=== PATIENT | male | born 1965 | race Caucasian/White ===

== ENCOUNTER → 2022-06-30 14:54 | Outpatient (BNVA) | payer BC, SELFPAY | PROVIDERS: PCP Internal Medicine; Visit Provider Hospitalist | DX: Z13.89 Encounter for screening for other disorder (principal) ==

== ENCOUNTER → 2022-07-29 15:04 | Outpatient (BNVA) | payer BC, SELFPAY | PROVIDERS: PCP Internal Medicine; Visit Provider Hospitalist | DX: J45.909 Unspecified asthma, uncomplicated (principal) ==

== ENCOUNTER 2023-01-27 15:14 | Outpatient (AMB) | payer BC, SELFPAY ==
[2023-01-27 15:21] VITALS: BP 128/76; PULSE 60; O2SAT 96; BMI 25.8
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
== END 2023-01-27 15:48 | disposition home or self-care (01) ==
PROVIDERS: PCP Internal Medicine; Visit Provider Hospitalist
DX: J45.40 Moderate persistent asthma, uncomplicated (principal); R06.00 Dyspnea, unspecified; J30.2 Other seasonal allergic rhinitis; J40 Bronchitis, not specified as acute or chronic
CPT/HCPCS: 99214

== ENCOUNTER → 2023-01-27 15:14 | Outpatient (BNVA) | payer BC, SELFPAY | PROVIDERS: PCP Internal Medicine; Visit Provider Hospitalist | DX: J45.909 Unspecified asthma, uncomplicated (principal) ==

== ENCOUNTER 2023-01-27 15:52 | Outpatient (REF) | payer BC, SELFPAY | END 2023-01-27 15:53 | disposition home or self-care (01) | LOC: HO.LNP 15:52 | PROVIDERS: Visit Provider Hospitalist | DX: J40 Bronchitis, not specified as acute or chronic (principal) | CPT/HCPCS: 87070; 87205 ==

== ENCOUNTER 2023-05-06 08:45 | Outpatient (REF) | payer BC, SELFPAY ==
--- NOTE | 2023-05-06 09:11 | PFT_ITS ---
Indication: Asthma Spirometry [FEV1 to FVC pre bronchodilator 71% post bronchodilator 74%; FEV1 3.96 L 103% predicted; FVC 5.37 L 99% predicted. No significant response to bronchodilators noted. Maximum voluntary ventilation 147% predicted] Lung Volumes [Total lung capacity 125 % predicted; residual volume 132% predicted] Diffusion Capacity [Diffusing capacity 157% predicted Comparisons [None] Interpretation [No obstructive nor restrictive ventilatory defects 75. No significant response to bronchodilators noted. Although, his pre bronchodilator FEV1 to FVC was very close to an obstructive physiology. The patient does have significant air trapping and hyperinflation due to his small airways disease. In addition, the patient has a significantly elevated diffusing capacity. Need to consider exogenous exposure to carbon monoxide. Clinical correlation warranted.] MTDD
== END 2023-05-06 08:46 | disposition home or self-care (01) ==
LOC: HO.RESP 08:45
PROVIDERS: PCP Internal Medicine; Visit Provider Hospitalist
DX: J40 Bronchitis, not specified as acute or chronic (principal)
CPT/HCPCS: 94010; 94727; 94729

== ENCOUNTER → 2023-05-07 07:11 | Outpatient (BNV) | payer BC, SELFPAY | PROVIDERS: PCP Internal Medicine; Visit Provider Hospitalist | DX: J40 Bronchitis, not specified as acute or chronic (principal) | CPT/HCPCS: 94060; 94727; 94729 ==

== ENCOUNTER 2023-05-14 12:50 | Outpatient (REF) | payer BC, SELFPAY ==
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
[2023-05-14 13:39] LABS: MANUAL DIFF FLAG NO
[2023-05-14 14:15] LABS: Basophils Absolute Auto 0.1 X10*3/uL (0.0-0.2); Basophils Percent Auto 0.9 % (0-2); Eosinophils Absolute Auto 0.2 X10*3/uL (0.0-0.4); Eosinophils Percent Auto 2.2 % (0-4); Hematocrit 46.9 % (42.0-52.0); Hemoglobin 16.7 g/dl (14.0-18.0); Imm Gran Abs Auto 0.02 X10*3/uL (0.00-0.03); Imm Gran Pct Auto 0.3 % (0.0-0.4); Lymphocytes Absolute Auto 1.4 X10*3/uL (1.2-4.9); Lymphocytes Percent Auto 20.4 % (20-40); Mean Corpuscular HGB Conc 35.6 g/dl (31.0-36.0); Mean Corpuscular Hemoglobin 32.5 pg (27.0-33.0); Mean Corpuscular Volume 91.2 fL (80.0-98.0); Mean Platelet Volume 9.1 fL (9.4-12.4); Monocytes Absolute Auto 0.4 X10*3/uL (0.1-1.2); Monocytes Percent Auto 5.8 % (2-11); Neutrophils Absolute Auto 4.7 x10*3/uL (2.0-8.3); Neutrophils Percent Auto 70.4 % (45-73); Platelet Count 199 X10*3/uL (160-400); Red Blood Count 5.14 X10*6/uL (4.60-5.80); Red Cell Distribution Width 12.8 % (11.0-16.0); White Blood Count 6.7 X10*3/uL (4.8-10.8)
[2023-05-14 14:39] LABS: Anion Gap 12 (12-20); Blood Urea Nitrogen 21 mg/dL (9-16); Calcium 9.1 mg/dL (8.4-10.2); Carbon Dioxide 30 mmol/L (22-29); Chloride 104 mmol/L (96-108); Estimated Glomerular Filt Rate > 60; Glucose Random 112 mg/dL (60-115); Potassium 3.5 mmol/L (3.3-5.1); Sodium 142 mmol/L (135-145)
[2023-05-14 14:53] LABS: Erythrocyte Sedimentation Rate 2 MM/HR (0-15)
[2023-05-18 13:29] LABS: IgA 183 mg/dL (47-310); IgG 952 mg/dL (600-1640); IgM 102 mg/dL (50-300)
[2023-05-18 18:18] LABS: Immunoglobulin E 65 kU/L (<OR=114)
[2023-05-21 14:34] LABS: Asperg fumigatus Precip Abs NEGATIVE (NEGATIVE); Micropoly faeni Abs NEGATIVE (NEGATIVE); Pigeon serum Abs NEGATIVE (NEGATIVE); Saccharo pora viridis Abs NEGATIVE (NEGATIVE); Thermo candidus Abs NEGATIVE (NEGATIVE); Thermoa vulgaris #1 NEGATIVE (NEGATIVE)
== END 2023-05-14 12:51 | disposition home or self-care (01) ==
LOC: HO.XRAY 12:50
PROVIDERS: PCP Internal Medicine; Visit Provider Hospitalist
DX: R91.8 Other nonspecific abnormal finding of lung field (principal); J45.40 Moderate persistent asthma, uncomplicated; R06.09 Other forms of dyspnea; J30.2 Other seasonal allergic rhinitis; J40 Bronchitis, not specified as acute or chronic
CPT/HCPCS: 36415; 71046; 80048; 82784; 82785; 85025; 85652; 86003; 86331; 86606; 86609

== ENCOUNTER 2023-05-14 12:50 | Outpatient (AMB) | payer BC, SELFPAY ==
[2023-05-14 12:59] VITALS: PULSE 64; O2SAT 97; BMI 26.3
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
== END 2023-05-14 13:25 | disposition home or self-care (01) ==
PROVIDERS: PCP Internal Medicine; Visit Provider Hospitalist
DX: J45.40 Moderate persistent asthma, uncomplicated (principal); R06.09 Other forms of dyspnea; J30.2 Other seasonal allergic rhinitis
CPT/HCPCS: 99214

== ENCOUNTER 2023-10-08 12:48 | Outpatient (AMB) | payer BC, SELFPAY ==
[2023-10-08 13:02] VITALS: BP 124/70; PULSE 54; O2SAT 97; BMI 26.6
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
== END 2023-10-08 13:18 | disposition home or self-care (01) ==
PROVIDERS: PCP Internal Medicine; Visit Provider Hospitalist
DX: J45.40 Moderate persistent asthma, uncomplicated (principal); R06.09 Other forms of dyspnea; J30.2 Other seasonal allergic rhinitis
CPT/HCPCS: 99214

== ENCOUNTER → 2023-10-08 12:48 | Outpatient (BNVA) | payer BC, SELFPAY | PROVIDERS: PCP Internal Medicine; Visit Provider Hospitalist | DX: J45.909 Unspecified asthma, uncomplicated (principal); J30.2 Other seasonal allergic rhinitis ==

== ENCOUNTER 2024-10-14 12:39 | Outpatient (REF) | payer BC, SELFPAY ==
--- NOTE | ~2024-10-14 | XR_ITS ---
EXAMINATION: XR CHEST CLINICAL INFORMATION: J40 - Bronchitis, not specified as acute or chronic COMPARISON: May 14, 2023. TECHNIQUE: 2 views of the chest were obtained. FINDINGS: No consolidation pleural effusion or pneumothorax. S-shaped curvature of the thoracolumbar spine. Cardiomediastinal silhouette size is normal. Multilevel thoracic and upper lumbar spondylosis. Old traumatic deformities and callus formation in the posterior lateral aspect of the ribs right hemithorax. XR/XR chest 2V IMPRESSION: No acute airspace disease. Stable chest. Electronically signed by: Kevin Aleman MD 10/14/2024 01:46 PM EDT
--- OUTSIDE RECORDS SUMMARY | 2024-10-14 13:23 | XMS_ITS | Continuity of Care Document ---
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 Comments Source KPiP-Dwq-DMC 2020 UNKNOWN 120 GlaxoSmithKli ne complet ed DTaP-Hib- IPV 02/07/21 Given Ambulat ory Pharmac y influenza virus vaccine, unspecified 2020 UNKNOWN 88 [employer] complet ed influenza virus vaccine, unspecifi ed 02/07/21 Given Ambulat ory Pharmac y tetanus-dipht h toxoids (Td) adult/adol 2020 zzPawan ht Arm [id number] 09 [place] [employer] complet ed tetanus-d iphth toxoids (Td) adult/ado l 10/16/20 Given Ambulat ory Pharmac y tetanus and diphtheria toxoids, adsorbed, preservative free, for adult use (2 Lf of tetanus toxoid and 2 Lf of diphtheria toxoid) 1 2020 JOHNSON STACY [id number] 09 [facility] ([place]) complet ed tetanus and diphtheri a toxoids, adsorbed, preservat parish free, for adult use (2 Lf of tetanus toxoid and 2 Lf of diphtheri a toxoid) DoD COVID Vaccine Moderna 2020 [id number] complet ed COVID Vaccine Moderna 07/25/20 Given Ambulat ory Pharmac y COVID Vaccine Moderna 2020 [id number] 207 complet ed COVID Vaccine Moderna 06/27/20 Given Ambulat ory Pharmac y pneumococcal polysaccharid e, 23 valent 2019 zzRig ht Arm [id number] 33 [employer] complet ed pneumococ prabha polysacch aride, 23 valent 03/26/20 Given Ambulat ory Pharmac y poliovirus vaccine, inactivated 2019 zzLef t Arm [id number] 10 sanofi pasteur complet ed polioviru s vaccine, inactivat ed 03/26/20 Given Ambulat ory Pharmac y poliovirus vaccine, inactivated 1 2019 BRINA R[place] [id number] 10 Sanofi Pasteur ([facility]) complet ed polioviru s vaccine, inactivat ed DoD pneumococcal polysaccharid e vaccine, 23 valent 1 2019 [place] [id number] 33 Merck (MSD) complet ed pneumococ prabha [...] ory Pharmac y influenza, seasonal, injectable 2015 [id number] 141 Seqirus complet ed influenza , seasonal, injectabl e 03/07/16 Given Ambulat ory Pharmac y Influenza, seasonal, injectable 1 2015 [id number] 141 Seqirus (SEQ) comple t ed Influenza , seasonal, injectabl e DoD tuberculin purified protein derivative 2014 UNK 96 Unknown complet ed tuberculi n purified protein derivativ e 02/15/15 Given Ambulat ory Pharmac y influenza, seasonal, injectable 2014 [id number] 141 Unknown complet ed influenza , seasonal, injectabl e 02/06/15 Given Ambulat ory Pharmac y Influenza, seasonal, injectable 1 2014 [id number] 150 141 Unknown (UNK) complet ed Influenza [...] dosage DoD meningococcal oligosacchari de (MCV4O) 2013 [id number] 136 sanofi pasteur complet ed meningoco ccal oligosacc haride (MCV4O) 08/15/13 Given Ambulat ory Pharmac y meningococcal oligosacchari de (groups A, C, Y and W-135) diphtheria toxoid conjugate vaccine (MCV4O) 1 2013 [id number] 136 Sanofi Pasteur ([facility]) complet ed meningoco ccal oligosacc haride (groups A, C, Y and W-135) diphtheri a toxoid conjugate vaccine (MCV4O) DoD typhoid Vi capsular polysaccharid e vac 2013 [id number] 1 101 sanofi pasteur complet ed typhoid Vi capsular polysacch aride vac 06/28/13 Given Ambulat ory Pharmac y typhoid Vi capsular polysaccharid e vaccine 4 2013 [id number] 1 101 Sanofi Pasteur ([facility]) complet ed typhoid Vi capsular polysacch aride vaccine DoD tuberculin purified protein derivative 2012 UNK 96 Unknown complet ed tuberculi n purified protein derivativ e 03/23/13 Given Ambulat ory Pharmac y influenza, seasonal, injectable 2012 [id number] 141 [employer] complet ed influenza , seasonal, injectabl e 02/22/13 Given Ambulat ory Pharmac y Influenza, seasonal, injectable 1 2012 [id number] 141 [employer] ([facility]) complet ed Influenza , seasonal, injectabl e DoD tuberculin purified protein derivative 2011 [id number] 96 sanofi pasteur complet ed tuberculi n purified protein derivativ e 03/05/12 Given Ambulat ory Pharmac y influenza, seasonal, injectable-pf 2011 [id number] 140 sanofi pasteur complet ed influenza , seasonal, injectabl e-pf 02/26/12 Given Ambulat ory Pharmac y Influenza, seasonal, injectable, preservative free 1 2011 [id number] 140 Sanofi Pasteur ([facility]) complet ed Influenza , seasonal, injectabl e, preservat parish free DoD influenza virus vaccine, unspecified 2010 [id number] 88 sanofi pasteur complet ed influenza virus vaccine, unspecifi ed 03/24/11 Given Ambulat ory Pharmac y influenza virus vaccine, unspecified formulation 1 2010 [id number] 88 Sanofi Pasteur ([facility]) complet ed influenza virus vaccine, unspecifi ed formulati on DoD typhoid Vi capsular polysaccharid e vac 2010 [id number] 101 sanofi pasteur complet ed typhoid Vi capsular polysacch aride vac 08/18/10 Given Ambulat ory Pharmac y yellow fever vaccine 2010 [id number] 37 sanofi pasteur complet ed yellow fever vaccine 08/18/10 Given Ambulat ory Pharmac y yellow fever vaccine 1 2010 [id number] 37 Sanofi Pasteur ([facility]) complet ed yellow fever vaccine DoD typhoid Vi capsular polysaccharid e vaccine 1 2010 [id number] 101 Sanofi Pasteur ([facility]) complet ed typhoid Vi capsular polysacch aride vaccine DoD tetanus, diphtheria, acellular pertu is 2009 [id number] 115 sanofi pasteur complet ed tetanus, diphtheri a, acellular pertussis 04/08/10 Given Ambulat ory Pharmac y tetanus toxoid, reduced diphtheria toxoid, and acellular pertu is vaccine, adsorbed 1 2009 [id number] 115 Sanofi Pasteur ([facility]) complet ed tetanus toxoid, reduced diphtheri a toxoid, and acellular pertussis vaccine, adsorbed DoD tuberculin purified protein derivative 2009 UNK 96 Unknown complet ed tuberculi n purified protein derivativ e 04/05/10 Given Ambulat ory Pharmac y influenza virus vaccine,split 2009 [id number] 15 sanofi pasteur complet ed influenza virus vaccine,s plit 04/04/10 Given Ambulat ory Pharmac y influenza virus vaccine, split virus (incl. purified surface antigen)-reti red CODE 1 2009 [id number] 15 Sanofi Pasteur ([facility]) complet ed influenza virus vaccine, split virus (incl. purified surface antigen)- retired CODE [facility] influenza virus vaccine, live 2008 [id number] 111 [employer] Inc comple t ed influenza virus vaccine, live 04/14/09 Given Ambulat ory Pharmac y influenza virus vaccine, live, attenuated, for intranasal use 1 2008 [id number] 111 MedImmune, Inc. (MED) complet ed influenza virus vaccine, live, attenuate d, for intranasa l use [facility] tuberculin purified protein derivative 2006 [id number] 96 [facility] complet ed tuberculi n purified protein derivativ e 02/06/07 Given Ambulat ory Pharmac y anthrax vaccine 2006 [id number] 24 [employer] complet ed anthrax vaccine 11/26/06 Given Ambulat ory Pharmac y anthrax vaccine 3 2006 [id number] 24 [employer] ([facility]) complet ed anthrax vaccine DoD anthrax vaccine 2006 [id number] 24 [employer] complet ed anthrax vaccine 10/15/06 Given Ambulat ory Pharmac y anthrax vaccine 2 2006 [id number] 24 [employer] [place] ([facility]) complet ed anthrax vaccine DoD anthrax vaccine 2006 [id number] 24 [employer] complet ed anthrax vaccine 09/25/06 Given Ambulat ory Pharmac y anthrax vaccine 1 2006 [id number] 24 [employer] ([facility]) complet ed anthrax vaccine DoD influenza virus [...] anthrax vaccine DoD vaccinia (smallpox) vaccine 2005 [id number] 75 [employer] complet ed vaccinia (smallpox ) vaccine 11/29/05 Given Ambulat ory Pharmac y vaccinia (smallpox) vaccine 1 2005 [id number] 75 [facility] ([facility] complet ed vaccinia (smallpox ) vaccine DoD typhoid Vi capsular polysaccharid e vac 2005 [id number] 101 [employer] complet ed typhoid Vi capsular polysacch aride vac 11/19/05 Given Ambulat ory Pharmac y meningococcal polysaccharid e (MPSV4) 2005 [id number] 32 [employer] complet ed meningoco ccal polysacch aride (MPSV4) 11/19/05 Given Ambulat ory Pharmac y meningococcal polysaccharid e vaccine (MPSV4) 1 2005 [id number] 32 [employer] ([facility]) complet ed meningoco ccal polysacch aride vaccine (MPSV4) DoD typhoid Vi capsular polysaccharid e vaccine 1 2005 [id number] 101 [employer] ([facility]) complet ed typhoid Vi capsular polysacch aride vaccine DoD tuberculin purified protein derivative 2005 UNK 96 Unknown complet ed tuberculi n purified protein derivativ e 11/13/05 Given Ambulat ory Pharmac y influenza virus vaccine,split 2005 [id number] 15 sanofi pasteur complet ed influenza virus vaccine,s plit 08/10/05 Given Ambulat ory Pharmac y influenza virus vaccine, split virus (incl. purified surface antigen)-reti red CODE 1 2005 [id number] 15 Sanofi Pasteur ([facility]) complet ed influenza [...] ADM Date DC Date Status Disposition Source [place]([facility] Bldg [address]) OUTPATIENT [id number] Notes Entered by: HAYLEE NICOLAS 26 Mar 2020 0956 ------- ------- ------- ------- -- CLEMENTINE FELIX 03/26 Released w/o Limitations [place] Bldg [address]) [place] Optometry ) OUTPATIENT [id number] Notes Entered by: SIMBA CARPENTER 26 Mar 2020 1317 ------- ------- ------- ------- -- [facility] FOR [facility] AT[facility]/D SIMBA DRAKE 03/26 Released w/o Limitations [place] Optomet ry) Theater Facility OUTPATIENT [id number] Theater Provider 04/13 Released w/o Limitations Theater Facilit y Theater Facility OUTPATIENT [id number] Theater Provider 06/28 Released w/o Limitations Theater Facilit y Theater Facility OUTPATIENT [id number] Theater Provider 07/26 Released w/o Limitations Theater Facilit [place]([facility] [address]) OUTPATIENT [id number] Notes Entered by: THOMAS RENEE 16 Oct 2020 0747 ------- ------- ------- ------- -- [facility] [employer]iga 10/16 Released w/o Limitations [place] Bldg [address]) [place] Hearing Conservat ion) OUTPATIENT [id number] Notes Entered by: Wendy MUHAMMAD 16 Oct 2020 0908 ------- ------- ------- ------- -- POST VADIM MUHAMMAD 10/16 Released w/o Limitations [place] Hearing Conserv ation) [place] Bldg [address]) OUTPATIENT [id number] Notes Entered by: WOLF JIN 16 Oct 2020 1029 ------- ------- ------- ------- -- [facility]- 402ND KARIN BURT 10/16 Released w/o Limitations [place] Bldg [address]) Procedures Combined list of: 1) Procedures from Department of Veterans Affairs facilities going back up to thelast 18 months, not all VA non-surgical procedures are included; 2) All procedures from the Department of Defense facilities. Procedure Procedure Type Code Date Perfomer Comments Sourc e PURE TONE AUDIOMETRY (THRESHOLD); AIR ONLY 2006 [facility] OPHTHALMOLOGICAL SERVICES: MEDICAL EXAMINATION AND EVALUATION WITH INITIATION OF DIAGNOSTIC AND TREATMENT PROGRAM; INTERMEDIATE, NEW PATIENT 2005 [facility] OPHTHALMOLOGICAL SERVICES: MEDICAL EXAMINATION AND EVALUATION, WITH INITIATION OR CONTINUATION OF DIAGNOSTIC AND TREATMENT PROGRAM; COMPREHENSIVE, ESTABLISHED PATIENT, 1 OR MORE VISITS 2001 [facility] PURE TONE AUDIOMETRY (THRESHOLD); AIR ONLY 2001 [facility] PATIENT EDUCATION, NOT OTHERWISE CLASSIFIED, NON-PHYSICIAN PROVIDER, GROUP, PER SESSION 2020 [facility] IMMUNIZATION ADMINISTRATION (INCLUDES PERCUTANEOUS, INTRADERMAL, SUBCUTANEOUS, OR INTRAMUSCULAR INJECTIONS); 1 VACCINE (SINGLE OR COMBINATION VACCINE/TOXOID) 2020 [facility] SCREENING TEST OF VISUAL ACUITY, QUANTITATIVE, BILATERAL 2019 DoD Vaccines Viral Polio, Inactivated (Salk) Vaccines Viral Polio, Inactivated (Salk) 93155 CLMEENTINE COREY IPV; Series #: 1; 0.5 mL; IM; Left Arm; Mfg: Sanofi Pasteur; Lot: [id number]. [facility] Pneumococcal Polysaccharide Vaccine (Age 2Y+) Pneumococcal Polysaccharide Vaccine (Age 2Y+) 36379 CLEMENTINE COREY Pneumococcal polysaccharide PPV23 (Pneumovax 23); Series #: 1; 0.5 mL; IM; Right Arm; Mfg: [employer]; Lot: [id number]; VIS given (Whitney: 04/06/2019). DoD Immunization Administration One Vaccine Immunization Administration One Vaccine 64938 CLEMENTINE COREY DoD Immunization Administration Each Additional Vaccine Immunization Administration Each Additional Vaccine 42791 CLEMENTINE COREY [facility] Screening Test Of Visual Acuity, Quantitative, Bilateral Screening Test Of Visual Acuity, Quantitative, Bilateral 71132 SIMBA BARRETT [facility] Td Vaccine Seven Years Of Age And Above Preservative Free Td Vaccine Seven Years Of Age And Above Preservative Free 01663 ARBEN GANDARA Foreign Td (adult), adsorbed; Series #: 1; 0.5 mL; IM; Right Arm; [facility]: [facility] [employer]; Lot: [id number]; VIS given (Whitney: 09/07/2019). [facility] Threshold Audiogram (Pure Tone) Automated Threshold Audiogram (Pure Tone) Automated 0208T MOISES OLGUIN [facility] Patient education, not otherwise cla ified, non-physician provider, group, per se MOISES Wang [facility] No data available for this section Ambulato ry Pharmacy Social History Combined list of available smoking, tobacco, and other social history from Department of Defense and Veterans Affairs facilities. Social History Type Response Date Comment Sour e Tobacco smoking status NHIS LIFETIME NON-TOBACCO USER 05/03/2007 [facility] [place] [facility] This section is [...] of Defense and Veterans Affairs (VA).VA Functional [place] Measurement (FIM) Scale: 1 = Total Assistance (Subject = 0% +), 2 = Maximal Assistance (Subject = 25% +), 3 = Moderate Assistance (Subject = 50% +), 4 = Minimal Assistance (Subject = 75% +), 5 = Supervision, 6 = Modified [place] (Device), 7 = Complete [place] (Timely, Safely). Assessment Date/Time Source Assessment Type Assessment Skill Assessment Score Assessment Details No data available for this section
[2024-10-14 13:32] LABS: MANUAL DIFF FLAG NO
[2024-10-14 14:33] LABS: Basophils Percent Auto 0.6 % (0-2); Eosinophils Absolute Auto 0.2 X10*3/uL (0.0-0.4); Eosinophils Percent Auto 2.8 % (0-4); Hemoglobin 16.3 g/dl (14.0-18.0); Imm Gran Abs Auto 0.01 X10*3/uL (0.00-0.03); Imm Gran Pct Auto 0.2 % (0.0-0.4); Lymphocytes Absolute Auto 1.2 X10*3/uL (1.2-4.9); Lymphocytes Percent Auto 18.4 % (20-40); Mean Corpuscular HGB Conc 36.2 g/dl (31.0-36.0); Mean Corpuscular Hemoglobin 33.5 pg (27.0-33.0); Mean Corpuscular Volume 92.4 fL (80.0-98.0); Mean Platelet Volume 9.5 fL (9.4-12.4); Monocytes Absolute Auto 0.4 X10*3/uL (0.1-1.2); Monocytes Percent Auto 6.7 % (2-11); Neutrophils Absolute Auto 4.6 x10*3/uL (2.0-8.3); Neutrophils Percent Auto 71.3 % (45-73); Platelet Count 194 X10*3/uL (160-400); Red Blood Count 4.87 X10*6/uL (4.60-5.80); Red Cell Distribution Width 13.3 % (11.0-16.0); White Blood Count 6.4 X10*3/uL (4.8-10.8)
[2024-10-14 15:11] LABS: Erythrocyte Sedimentation Rate 2 MM/HR (0-15)
[2024-10-17 14:53] LABS: Alpha 1 Anti-trypsin 138 mg/dL (83-199); IgA 166 mg/dL (47-310); IgG 833 mg/dL (600-1640); IgM 84 mg/dL (50-300)
[2024-10-17 18:39] LABS: Immunoglobulin E 50 kU/L (<OR=114)
[2024-10-22 15:24] LABS: Asperg fumigatus Precip Abs NEGATIVE (NEGATIVE); Micropoly faeni Abs NEGATIVE (NEGATIVE); Pigeon serum Abs NEGATIVE (NEGATIVE); Saccharo pora viridis Abs NEGATIVE (NEGATIVE); Thermo candidus Abs NEGATIVE (NEGATIVE); Thermoa vulgaris #1 NEGATIVE (NEGATIVE)
== END 2024-10-14 12:40 | disposition home or self-care (01) ==
LOC: HO.LAB 12:39
PROVIDERS: PCP Internal Medicine; Visit Provider Hospitalist
DX: R91.1 Solitary pulmonary nodule (principal); J45.40 Moderate persistent asthma, uncomplicated; R06.09 Other forms of dyspnea; J30.2 Other seasonal allergic rhinitis; J40 Bronchitis, not specified as acute or chronic
CPT/HCPCS: 36415; 71046; 82103; 82784; 82785; 85025; 85652; 86331; 86606; 86609

== ENCOUNTER 2024-10-14 12:39 | Outpatient (AMB) | payer BC, SELFPAY ==
--- OUTSIDE RECORDS SUMMARY | 2024-10-14 12:41 | XMS_ITS | Continuity of Care Document ---
Author Name [facility] Organization [facility] Care Team Providers Care Creel Clerk Name Role Phone [facility] Unavailable Unavailable Problems Combined list of problems from Department of Defense and Veterans Affairs facilities. It does not include entries that were removed or entered in error. Problem Status Onset Date Problem Type Date of Resolution Comments Source Encounter for immunization Active 07/27/2020 Condition DoD Encounter for screening for infectious and parasitic diseases Inactive 04/22/2020 Condition DoD Medications Combined list of outpatient medications from Department of Defense and Veterans Affairs facilities.Medications provided include 1) outpatient medications from the last 15 months, and 2) patient-reported medications. Medication Details Route Status Patient Instructions Prescription Expires Prescription Number Last Dispense Date Ordering Provider Order Date Order Qty Source PROAIR HFA (ALBUTEROL SULFATE), 90 MCG, HFA AER AD, INHALATION, TEVA SPECIALTY, 8.5 g CANISTER PROAIR HFA (ALBUTER OL SULFATE) , 90 MCG, HFA AER AD, INHALATI ON, TEVA SPECIALT Y, 8.5 g CANISTER Start Date: 02/11/21 Status: Ordered Repeat number: 1 Ordered 2020 No Facilit y Access PROAIR HFA (ALBUTEROL SULFATE), 90 MCG, HFA AER AD, INHALATION, TEVA SPECIALTY, 8.5 g CANISTER PROAIR HFA (ALBUTER OL SULFATE) , 90 MCG, HFA AER AD, INHALATI ON, TEVA SPECIALT Y, 8.5 g CANISTER Start Date: 05/21/20 Status: Ordered Repeat number: 1 Ordered 2020 No Facilit y Access PROAIR HFA (ALBUTEROL SULFATE), 90 MCG, HFA AER AD, INHALATION, TEVA SPECIALTY, 8.5 g CANISTER PROAIR HFA (ALBUTER OL SULFATE) , 90 MCG, HFA AER AD, INHALATI ON, TEVA SPECIALT Y, 8.5 g CANISTER Start Date: 11/16/20 Status: Ordered Repeat number: 1 Ordered 2020 No Facilit y Access tamsulosin 0.4 mg oral capsule tamsulos in 0.4 mg oral capsule Start Date: 02/11/21 Status: Ordered Repeat number: 1 Ordered 2020 No Facilit y Access tamsulosin 0.4 mg oral capsule tamsulos in 0.4 mg oral capsule Start Date: 02/15/20 Status: Ordered Repeat number: 1 Ordered 2020 No Facilit y Access tamsulosin 0.4 mg oral capsule tamsulos in 0.4 mg oral capsule Start Date: 05/21/20 Status: Ordered Repeat number: 1 Ordered 2020 No Facilit y Access tamsulosin 0.4 mg oral capsule tamsulos in 0.4 mg oral capsule Start Date: 11/16/20 Status: Ordered Repeat number: 1 Ordered 2020 No Facilit y Access Allergies, Adverse Reactions, Alerts Combined list of allergies from Department of Defense and Veterans Affairs facilities. It does not include entries that were removed or entered in error. Substance Category Reaction Severity Reaction type Status Date Reported Comments Source PENICILLIN V POTASSIUM (PENICILLIN V POTASSIUM) Drug allergy (disorder) Unknown active 7 [facility] [place] penicillin V pota ium Propensity to adverse reactions to substance Unknown Active 7 not sure Unknown Organizatio n Immunizations Combined list of available immunizations from the Department of Defense and Veterans Affairs facilities. 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 Status Comments Source [id number] 2020 UNKNOWN 120 GlaxoSmithKli ne complet ed DTaP-Hib- IPV 02/07/21 Given Ambulat ory Pharmac y influenza virus vaccine, unspecified 2020 UNKNOWN 88 Seqirus complet ed influenza virus vaccine, unspecifi ed 02/07/21 Given Ambulat ory Pharmac y tetanus-dipht h toxoids (Td) adult/adol 2020 zzPawan ht Arm [id number] 09 [place] [employer] complet ed tetanus-d iphth toxoids (Td) adult/ado l 10/16/20 Given Ambulat ory Pharmac y tetanus and diphtheria toxoids, adsorbed, preservative free, for adult use (2 Lf of tetanus toxoid and 2 Lf of diphtheria toxoid) 1 2020 JOHNSON STACY [id number] 09 [facility] ([employer]) complet ed tetanus and diphtheri a toxoids, adsorbed, preservat parish free, for adult use (2 Lf of tetanus toxoid and 2 Lf of diphtheri a toxoid) DoD COVID Vaccine Moderna 2020 [id number] complet ed COVID Vaccine Moderna 07/25/20 Given Ambulat ory Pharmac y COVID Vaccine Moderna 2020 [id number] 207 complet ed COVID Vaccine Moderna 06/27/20 Given Ambulat ory Pharmac y pneumococcal polysaccharid e, 23 valent 2019 zzRig ht Arm [id number] 33 Merck & Company Inc complet ed pneumococ prabha polysacch aride, 23 valent 03/26/20 Given Ambulat ory Pharmac y poliovirus vaccine, inactivated 2019 zzLef t Arm [id number] 10 sanofi pasteur complet ed polioviru s vaccine, inactivat ed 03/26/20 Given Ambulat ory Pharmac y poliovirus vaccine, inactivated 1 2019 [place] [id number] 10 Sanofi Pasteur (PMC) complet ed polioviru s vaccine, inactivat ed DoD pneumococcal polysaccharid e vaccine, 23 valent 1 2019 [place] [id number] 33 Merck (MSD) complet ed pneumococ prabha polysacch aride vaccine, 23 valent DoD influenza virus vaccine, unspecified 2018 UNK 88 Unknown complet ed influenza virus vaccine, unspecifi ed 02/25/19 Given Ambulat ory Pharmac y influenza virus vaccine, unspecified formulation 1 2018 UNK 88 Unknown (UNK) comple t ed influenza virus vaccine, unspecifi ed formulati on DoD influenza, seasonal, injectable 2017 UNK 141 GlaxoSmithKli ne complet ed influenza , seasonal, injectabl e 02/22/18 Given Ambulat ory Pharmac y Influenza, seasonal, injectable 1 2017 UNK 141 SmithKline (SKB) complet ed Influenza , seasonal, injectabl e DoD tuberculin purified protein derivative 2016 UNK 96 Unknown complet ed tuberculi n purified protein derivativ e 03/30/17 Given Ambulat ory Pharmac y influenza, seasonal, injectable 2016 UNK 141 Unknown complet ed influenza , seasonal, injectabl e 01/16/17 Given Ambulat ory Pharmac y Influenza, seasonal, injectable 1 2016 UNK 141 Unknown (UNK) comple t ed Influenza , seasonal, injectabl e DoD tuberculin purified protein derivative 2015 UNK 96 Unknown complet ed tuberculi n purified protein derivativ e 03/11/16 Given Ambulat ory Pharmac y influenza, seasonal, injectable 2015 [id number] Seqirus complet ed influenza , seasonal, injectabl e 03/07/16 Given Ambulat ory Pharmac y Influenza, seasonal, injectable 1 2015 [id number] 141 Seqirus (SEQ) comple t ed Influenza , seasonal, injectabl e DoD tuberculin purified protein derivative 2014 UNK 96 Unknown complet ed tuberculi n purified protein derivativ e 02/15/15 Given Ambulat ory Pharmac y influenza, seasonal, injectable 2014 [id number] 141 Unknown complet ed influenza , seasonal, injectabl e 02/06/15 Given Ambulat ory Pharmac y Influenza, seasonal, injectable 1 2014 [id number] 141 Unknown (UNK) complet ed Influenza , seasonal, injectabl e DoD hepatitis B vaccine, adult dosage 4 2014 UNK 43 Unknown (UNK) Not Given hepatitis B vaccine, adult dosage DoD influenza, seasonal, injectable-pf 2013 UNK 140 Novartis Pharmaceutica ls complet ed influenza , seasonal, injectabl e-pf 02/19/14 Given Ambulat ory Pharmac y Influenza, seasonal, injectable, preservative free 1 2013 UNK 140 Novartis Pharmaceutica l [place]. (NOV) complet ed Influenza , seasonal, injectabl e, preservat parish free DoD rubella virus vaccine 1 2013 UNK 06 Unknown (UNK) Not Given rubella virus vaccine DoD varicella virus vaccine 1 2013 UNK 21 Unknown (UNK) Not Given varicella virus vaccine DoD hepatitis A adult vaccine 2013 [id number] 52 Merck & Company Inc complet ed hepatitis A adult vaccine 08/17/13 Given Ambulat ory Pharmac y hepatitis A vaccine, adult dosage 3 2013 [id number] 52 Merck (MSD) complet ed hepatitis A vaccine, adult dosage DoD meningococcal oligosacchari de (MCV4O) 2013 [id number] 136 sanofi pasteur complet ed meningoco ccal oligosacc haride (MCV4O) 08/15/13 Given Ambulat ory Pharmac y meningococcal oligosacchari de (groups A, C, Y and W-135) diphtheria toxoid conjugate vaccine (MCV4O) 1 2013 [id number] 136 Sanofi Pasteur (PMC) complet ed meningoco ccal oligosacc haride (groups A, C, Y and W-135) diphtheri a toxoid conjugate vaccine (MCV4O) DoD typhoid Vi capsular polysaccharid e vac 2013 [id number] 1 101 sanofi pasteur complet ed typhoid Vi capsular polysacch aride vac 06/28/13 Given Ambulat ory Pharmac y typhoid Vi capsular polysaccharid e vaccine 4 2013 [id number] 1 101 Sanofi Pasteur ([facility]) complet ed typhoid Vi capsular polysacch aride vaccine DoD tuberculin purified protein derivative 2012 UNK 96 Unknown complet ed tuberculi n purified protein derivativ e 03/23/13 Given Ambulat ory Pharmac y influenza, seasonal, injectable 2012 [id number] 141 [employer] complet ed influenza , seasonal, injectabl e 02/22/13 Given Ambulat ory Pharmac y Influenza, seasonal, injectable 1 2012 [id number] 141 [employer] (CS) complet ed Influenza , seasonal, injectabl e DoD tuberculin purified protein derivative 2011 [id number] 96 sanofi pasteur complet ed tuberculi n purified protein derivativ e 03/05/12 Given Ambulat ory Pharmac y influenza, seasonal, injectable-pf 2011 [id number] 140 sanofi pasteur complet ed influenza , seasonal, injectabl e-pf 02/26/12 Given Ambulat ory Pharmac y Influenza, seasonal, injectable, preservative free 1 2011 [id number] 140 Sanofi Pasteur ([facility]) complet ed Influenza , seasonal, injectabl e, preservat parish free DoD influenza virus vaccine, unspecified 2010 [id number] 88 sanofi pasteur complet ed influenza virus vaccine, unspecifi ed 03/24/11 Given Ambulat ory Pharmac y influenza virus vaccine, unspecified formulation 1 2010 [id number] 88 Sanofi Pasteur (PMC) complet ed influenza virus vaccine, unspecifi ed formulati on DoD typhoid Vi capsular polysaccharid e vac 2010 [id number] 101 sanofi pasteur complet ed typhoid Vi capsular polysacch aride vac 08/18/10 Given Ambulat ory Pharmac y yellow fever vaccine 2010 [id number] 37 sanofi pasteur complet ed yellow fever vaccine 08/18/10 Given Ambulat ory Pharmac y yellow fever vaccine 1 2010 [id number] 37 Sanofi Pasteur (PMC) complet ed yellow fever vaccine DoD typhoid Vi capsular polysaccharid e vaccine 1 2010 E1288 101 Sanofi Pasteur (PMC) complet ed typhoid Vi capsular polysacch aride vaccine DoD tetanus, diphtheria, acellular pertu is 2009 [id number] 115 sanofi pasteur complet ed tetanus, diphtheri a, acellular pertussis 04/08/10 Given Ambulat ory Pharmac y tetanus toxoid, reduced diphtheria toxoid, and acellular pertu is vaccine, adsorbed 1 2009 [id number] 115 Sanofi Pasteur ([facility]) complet ed tetanus toxoid, reduced diphtheri a toxoid, and acellular pertussis vaccine, adsorbed DoD tuberculin purified protein derivative 2009 UNK 96 Unknown complet ed tuberculi n purified protein derivativ e 04/05/10 Given Ambulat ory Pharmac y influenza virus vaccine,split 2009 [id number] 15 sanofi pasteur complet ed influenza virus vaccine,s plit 04/04/10 Given Ambulat ory Pharmac y influenza virus vaccine, split virus (incl. purified surface antigen)-reti red CODE 1 2009 [id number] 15 Sanofi Pasteur (PMC) complet ed influenza virus vaccine, split virus (incl. purified surface antigen)- retired CODE [facility] influenza virus vaccine, live 2008 [id number] 111 Medimmune Inc comple t ed influenza virus vaccine, live 04/14/09 Given Ambulat ory Pharmac y influenza virus vaccine, live, attenuated, for intranasal use 1 2008 [id number] 111 MedImmune, Inc. (MED) complet ed influenza virus vaccine, live, attenuate d, for intranasa l use [facility] tuberculin purified protein derivative 2006 [id number] 96 [facility] complet ed tuberculi n purified protein derivativ e 02/06/07 Given Ambulat ory Pharmac y anthrax vaccine 2006 [id number] 24 [employer] complet ed anthrax vaccine 11/26/06 Given Ambulat ory Pharmac y anthrax vaccine 3 2006 [id number] 24 [employer] [place] ([facility]) complet ed anthrax vaccine DoD anthrax vaccine 2006 [id number] 24 [employer] complet ed anthrax vaccine 10/15/06 Given Ambulat ory Pharmac y anthrax vaccine 2 2006 [id number] 24 [employer] [place] ([facility]) complet ed anthrax vaccine DoD anthrax vaccine 2006 [id number] 24 [employer] complet ed anthrax vaccine 09/25/06 Given Ambulat ory Pharmac y anthrax vaccine 1 2006 [id number] 24 [employer] [place] ([facility]) complet ed anthrax vaccine DoD influenza virus vaccine,split 2005 UNK 15 Unknown complet ed influenza virus vaccine,s plit 04/14/06 Given Ambulat ory Pharmac y influenza virus vaccine, split virus (incl. purified surface antigen)-reti red CODE 1 2005 UNK 15 Unknown (UNK) comple t ed influenza virus vaccine, split virus (incl. purified surface antigen)- retired CODE DoD anthrax vaccine 2005 NONE 24 complet ed anthrax vaccine 12/02/05 Given Ambulat ory Pharmac y anthrax vaccine 1 2005 NONE 24 (NON) complet ed anthrax vaccine DoD vaccinia (smallpox) vaccine 2005 [id number] 75 [employer] complet ed vaccinia (smallpox ) vaccine 11/29/05 Given Ambulat ory Pharmac y vaccinia (smallpox) vaccine 1 2005 [id number] 75 [facility] ([facility]) complet ed vaccinia (smallpox ) vaccine DoD typhoid Vi capsular polysaccharid e vac 2005 [id number] 101 [employer] complet ed typhoid Vi capsular polysacch aride vac 11/19/05 Given Ambulat ory Pharmac y meningococcal polysaccharid e (MPSV4) 2005 [id number] 32 [employer] complet ed meningoco ccal polysacch aride (MPSV4) 11/19/05 Given Ambulat ory Pharmac y meningococcal polysaccharid e vaccine (MPSV4) 1 2005 [id number] 32 [employer] (AVB) complet ed meningoco ccal polysacch aride vaccine (MPSV4) DoD typhoid Vi capsular polysaccharid e vaccine 1 2005 [id number] 101 [employer] (AVB) complet ed typhoid Vi capsular polysacch aride vaccine DoD tuberculin purified protein derivative 2005 UNK 96 Unknown complet ed tuberculi n purified protein derivativ e 11/13/05 Given Ambulat ory Pharmac y influenza virus vaccine,split 2005 [id number] 15 sanofi pasteur complet ed influenza virus vaccine,s plit 08/10/05 Given Ambulat ory Pharmac y influenza virus vaccine, split virus (incl. purified surface antigen)-reti red CODE 1 2005 [id number] 15 Sanofi Pasteur (PMC) complet ed influenza virus vaccine, split virus (incl. purified surface antigen)- retired CODE DoD hepatitis B adult vaccine 2001 UNK 43 Unknown complet ed hepatitis B adult vaccine 02/14/02 Given Ambulat ory Pharmac y hepatitis B vaccine, adult dosage 3 2001 UNK 43 Unknown (UNK) comple t ed hepatitis B vaccine, adult dosage DoD tetanus toxoid, adsorbed 1999 UNK 35 Unknown complet ed tetanus toxoid, adsorbed 04/04/00 Given Ambulat ory Pharmac y tetanus toxoid, adsorbed 0 1999 UNK 35 Unknown (UNK) comple t ed tetanus toxoid, adsorbed DoD meningococcal polysaccharid e (MPSV4) 1999 UNK 32 Unknown complet ed meningoco ccal polysacch aride (MPSV4) 02/22/00 Given Ambulat ory Pharmac y poliovirus vaccine, live, oral 1999 UNK 02 Unknown complet ed polioviru s vaccine, live, oral 02/22/00 Given Ambulat ory Pharmac y trivalent poliovirus vaccine, live, oral 0 1999 UNK 02 Unknown (UNK) comple t ed trivalent polioviru s vaccine, live, oral DoD meningococcal polysaccharid e vaccine (MPSV4) 0 1999 UNK 32 Unknown (UNK) comple t ed meningoco ccal polysacch aride vaccine (MPSV4) DoD typhoid vaccine, live, oral 1999 UNK 25 Unknown complet ed typhoid vaccine, live, oral 01/13/00 Given Ambulat ory Pharmac y typhoid vaccine, live, oral 0 1999 UNK 25 Unknown (UNK) comple t ed typhoid vaccine, live, oral DoD yellow fever vaccine 1999 UNK 37 Unknown complet ed yellow fever vaccine 11/09/99 Given Ambulat ory Pharmac y yellow fever vaccine 0 1999 UNK 37 Unknown (UNK) comple t ed yellow fever vaccine DoD influenza virus vaccine, unspecified 1999 UNK 88 Unknown complet ed influenza virus vaccine, unspecifi ed 06/14/99 Given Ambulat ory Pharmac y tetanus toxoid, adsorbed 1999 UNK 35 Unknown complet ed tetanus toxoid, adsorbed 06/14/99 Given Ambulat ory Pharmac y tetanus toxoid, adsorbed 0 1999 UNK 35 Unknown (UNK) comple t ed tetanus toxoid, adsorbed DoD influenza virus vaccine, unspecified formulation 0 1999 UNK 88 Unknown (UNK) comple t ed influenza virus vaccine, unspecifi ed formulati on DoD hepatitis A adult vaccine 1998 UNK 52 Unknown complet ed hepatitis A adult vaccine 04/14/99 Given Ambulat ory Pharmac y hepatitis A vaccine, adult dosage 1 1998 UNK 52 Unknown (UNK) comple t ed hepatitis A vaccine, adult dosage DoD hepatitis A adult vaccine 1998 UNK 52 Unknown complet ed hepatitis A adult vaccine 04/11/99 Given Ambulat ory Pharmac y hepatitis A vaccine, adult dosage 1 1998 UNK 52 Unknown (UNK) comple t ed hepatitis A vaccine, adult dosage DoD measles/mumps /rubella virus vaccine 1998 UNK 03 Unknown complet ed measles/m umps/rube lla virus vaccine 12/20/98 Given Ambulat ory Pharmac y measles, mumps and rubella virus vaccine 0 1998 UNK 03 Unknown (UNK) comple t ed measles, mumps and rubella virus vaccine DoD hepatitis B adult vaccine 1998 UNK 43 Unknown complet ed hepatitis B adult vaccine 07/13/98 Given Ambulat ory Pharmac y hepatitis B vaccine, adult dosage 2 1998 UNK 43 Unknown (UNK) comple t ed hepatitis B vaccine, adult dosage DoD hepatitis B adult vaccine 1998 UNK 43 Unknown complet ed hepatitis B adult vaccine 06/08/98 Given Ambulat ory Pharmac y hepatitis B vaccine, adult dosage 1 1998 UNK 43 Unknown (UNK) comple t ed hepatitis B vaccine, adult dosage DoD measles/mumps /rubella virus vaccine 1989 UNK 03 Unknown complet ed measles/m umps/rube lla virus vaccine 12/12/89 Given Ambulat ory Pharmac y measles, mumps and rubella virus vaccine 2 1989 UNK 03 Unknown (UNK) comple t ed measles, mumps and rubella virus vaccine DoD measles/mumps /rubella virus vaccine 1984 UNK 03 Unknown complet ed measles/m umps/rube lla virus vaccine 10/30/84 Given Ambulat ory Pharmac y measles, mumps and rubella virus vaccine 1 1984 UNK 03 Unknown (UNK) comple t ed measles, mumps and rubella virus vaccine DoD poliovirus vaccine, live, oral 1967 UNK 02 Unknown complet ed polioviru s vaccine, live, oral 12/13/67 Given Ambulat ory Pharmac y trivalent poliovirus vaccine, live, oral 1 1967 UNK 02 Unknown (UNK) comple t ed trivalent polioviru s vaccine, live, oral DoD Encounters Combined list of: 1) Encounters from Department of Veterans Affairs facilities going backup to the last 18 months, not all VA inpatient encounters are included; 2) Encounters from the Department of Defense facilities going backup to 280 months. Location Location Details Encounter Type Encounter Number Reason For Visit Attending Provider ADM Date DC Date Status Disposition Source [place]([facility] Bldg [address]) OUTPATIENT [id number] Notes Entered by: HAYLEE NICOLAS 26 Mar 2020 0956 ------- ------- ------- ------- -- CLEMENTINE FELIX 03/26 Released w/o Limitations [place]([facility] Bldg [address]) [place] Optometry ) OUTPATIENT [id number] Notes Entered by: SIMBA CARPENTER 26 Mar 2020 1317 ------- ------- ------- ------- -- [facility] FOR [facility]OBIL[facility] ATION/D SIMBA DRAKE 03/26 Released w/o Limitations [place]([facility] Optomet ry) Theater Facility OUTPATIENT [id number] Theater Provider 04/13 Released w/o Limitations Theater Facilit y Theater Facility OUTPATIENT [id number] Theater Provider 06/28 Released w/o Limitations Theater Facilit y Theater Facility OUTPATIENT [id number] Theater Provider 07/26 Released w/o Limitations Theater Facilit y [place]([facility] [address]) OUTPATIENT [id number] Notes Entered by: THOMAS RENEE 16 Oct 2020 0747 ------- ------- ------- ------- -- [facility] Arechiga 10/16 Released w/o Limitations [place]([facility] Bldg [address]) [place] Hearing Conservat ion) OUTPATIENT [id number] Notes Entered by: Wendy MUHAMMAD 16 Oct 2020 0908 ------- ------- ------- ------- -- [facility] MUHAMMAD 10/16 Released w/o Limitations [place]([facility] Hearing Conserv ation) [place] Bldg [address]) OUTPATIENT [id number] Notes Entered by: WOLF JIN 16 Oct 2020 1029 ------- ------- ------- ------- -- [facility]- 402ND KARIN BURT 10/16 Released w/o Limitations [place]([facility] Bldg [address]) Procedures Combined list of: 1) Procedures from Department of Veterans Affairs facilities going back up to thelast 18 months, not all VA non-surgical procedures are included; 2) All procedures from the Department of Defense facilities. Procedure Procedure Type Code Date Perfomer Comments Sourc e No data available for this section [facility] PURE TONE AUDIOMETRY (THRESHOLD); AIR ONLY 2006 [facility] OPHTHALMOLOGICAL SERVICES: MEDICAL EXAMINATION AND EVALUATION WITH INITIATION OF DIAGNOSTIC AND TREATMENT PROGRAM; INTERMEDIATE, NEW PATIENT 2005 [facility] OPHTHALMOLOGICAL SERVICES: MEDICAL EXAMINATION AND EVALUATION, WITH INITIATION OR CONTINUATION OF DIAGNOSTIC AND TREATMENT PROGRAM; COMPREHENSIVE, ESTABLISHED PATIENT, 1 OR MORE VISITS 2001 [facility] PURE TONE AUDIOMETRY (THRESHOLD); AIR ONLY 2001 [facility] PATIENT EDUCATION, NOT OTHERWISE CLASSIFIED, NON-PHYSICIAN PROVIDER, GROUP, PER SESSION 2020 [facility] IMMUNIZATION ADMINISTRATION (INCLUDES PERCUTANEOUS, INTRADERMAL, SUBCUTANEOUS, OR INTRAMUSCULAR INJECTIONS); 1 VACCINE (SINGLE OR COMBINATION VACCINE/TOXOID) 2020 [facility] SCREENING TEST OF VISUAL ACUITY, QUANTITATIVE, BILATERAL 2019 DoD Vaccines Viral Polio, Inactivated (Salk) Vaccines Viral Polio, Inactivated (Salk) 04944 CLEMENTINE COREY IPV; Series #: 1; 0.5 mL; IM; Left Arm; Mfg: Sanofi Pasteur; Lot: [id number]. [facility] Pneumococcal Polysaccharide Vaccine (Age 2Y+) Pneumococcal Polysaccharide Vaccine (Age 2Y+) 12740 CLEMENTINE COREY Pneumococcal polysaccharide PPV23 (Pneumovax 23); Series #: 1; 0.5 mL; IM; Right Arm; Mfg: Merck; Lot: [id number]; VIS given (Whitney: 04/06/2019). DoD Immunization Administration One Vaccine Immunization Administration One Vaccine 29111 CLEMENTINE COREY DoD Immunization Administration Each Additional Vaccine Immunization Administration Each Additional Vaccine 88476 CLEMENTINE COREY [facility] Screening Test Of Visual Acuity, Quantitative, Bilateral Screening Test Of Visual Acuity, Quantitative, Bilateral 91715 SIMBA BARRETT [facility] Td Vaccine Seven Years Of Age And Above Preservative Free Td Vaccine Seven Years Of Age And Above Preservative Free 16907 ARBEN GANDARA Td (adult), adsorbed; Series #: 1; 0.5 mL; IM; Right Arm; [facility] [facility] [employer]; Lot: [id number]; VIS given (Whitney: 09/07/2019). [facility] Threshold Audiogram (Pure Tone) Automated Threshold Audiogram (Pure Tone) Automated 0208T MOISES OLGUIN [facility] Patient education, not otherwise cla ified, non-physician provider, group, per se ion MOISES OLGUIN [facility] Social History Combined list of available smoking, tobacco, and other social history from Department of Defense and Veterans Affairs facilities. Social History Type Response Date Comment Sour e Tobacco smoking status NHIS LIFETIME NON-TOBACCO USER 05/03/2007 [place] [facility] [place] [facility] This section is an empty social history section. DoD Assessment and Plan Combined list of future care activities from Department of Defense and Veterans Affairs facilities (e.g., assessment and plan notes, appointments, orders, and referrals). Additional future care activities may be listed in the Plan of Care section. Result Assessment and Plan Date Source Assessment and Plan No data available for this section 10/14/2024 Ambulatory Pharmacy Functional Status Combined list of recent functional and cognitive assessments recorded at Department of Defense and Veterans Affairs (VA).VA Functional [place] Measurement (FIM) Scale: 1 = Total Assistance (Subject = 0% +), 2 = Maximal Assistance (Subject = 25% +), 3 = Moderate Assistance (Subject = 50% +), 4 = Minimal Assistance (Subject = 75% +), 5 = Supervision, 6 = Modified [place] (Device), 7 = Complete [place] (Timely, Safely). Assessment Date/Time Source Assessment Type Assessment Skill Assessment Score Assessment Details No data available for this section
[2024-10-14 12:54] VITALS: BP 134/74; PULSE 70; O2SAT 96; BMI 26.8
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
== END 2024-10-14 13:17 | disposition home or self-care (01) ==
LOC: HO.HPS 12:39
PROVIDERS: PCP Internal Medicine; Visit Provider Hospitalist
DX: J45.40 Moderate persistent asthma, uncomplicated (principal); R06.09 Other forms of dyspnea; J30.2 Other seasonal allergic rhinitis; J40 Bronchitis, not specified as acute or chronic
CPT/HCPCS: 99214

== ENCOUNTER → 2024-10-14 13:33 | Outpatient (BNV) | payer BC, SELFPAY | PROVIDERS: PCP Internal Medicine; Visit Provider Radiology Diagnostic Radiology | DX: J40 Bronchitis, not specified as acute or chronic (principal) | CPT/HCPCS: 71046 ==

== ENCOUNTER 2025-04-18 11:05 | Outpatient (AMB) | payer BC, SELFPAY ==
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
[2025-04-18 11:07] VITALS: BP 148/78; PULSE 65; O2SAT 97; BMI 27.1
--- OUTSIDE RECORDS SUMMARY | 2025-04-18 13:15 | XMS_ITS | Data Portability ---
Author Organization [place] [facility] Address [address] [place] [address] Care Team Providers Care Fire Suppression Captain Name Role Phone WILFRIDOOSCARROLDAN Primary Care Provider Assessment Encounter Date Assessment Date Assessment LastModified by Organization Details LastModified Time 02/26/2020 02/26/2020 Overview/History : This is a 54 yo male that contacted for asymptomatic COVID testing. He was out of state for the past few days and is required to have a negative test after re entering the state or complete a quarantine. He is denying any symptoms concerning for COVID. Exam: He is overall well appearing, VSS. LS CTA, HR RRR. DDx considered, but not limited to: Not an urgent care visit , asymptomatic COVID testing Work up/Results:COVID 19 test pending Plan/Discussion: I discussed with the patient that results will be back the next 24-48 hours. He will receive a phone call with these. Proper Personal Protective Equipment (PPE), including gloves, eye protection, N95 mask, gown, and shoe covers were donned and doffed appropriately and all equipment cleaned using approved technique with germicidal disposable wipes prior to and after care of this patient according to [facility]'s infection prevention protocols. The patient under our care today has requested testing for the COVID-19 virus. Currently, they are asymptomatic. Testing was discussed with the patient to ensure understanding of the limitations of this test, including the fact that a negative test does not entirely exclude the possibility of COVID-19 infection. Based on the history obtained and exam today, the decision was made to test for COVID-19 in light of the current pandemic state. The patient was involved in the decision to test using a shared medical decision-making model. Time On Scene with Patient: 00:03:22 [email or web address] Not available 02/26/2020 17:49:19 Plan of Treatment Reminders Order Date Submit Date Provider Last Modified By Organization Details Last Modified Time Details Appointments None recorded. Lab SARS CoV 2 RNA (COVID-19), QL, post form remover-PCR, respiratory specimen 2019 020 AMGALI [facility] (Centralized Electronic Ordering - All Locations), Patient Can Go To The Location Of Their Choice, [id number] 0 07:25:50 Referral None recorded. Procedures None recorded. Surgeries None recorded. Imaging None recorded. Medication Orders None recorded. Patient TargetsNo targets recorded. Patient Instructions Encounter Date Encounter Id Patient Instructions Last Modified By Organization Details Last Modified Time 02/26/2020 [id number] You will be advi sed of your COVID-19 results as they become available. A [facility] steam finisher will contact you to let you know the results. We will also communicate the results to your primary care provider if you have one for any follow up needs you may have. Since you do not have symptoms currently, there is no recommendation to self-quarantine. Please continue to wash your hands and practice social distancing as recommended by your local government and public health agencies. If you develop mild symptoms, stay home and isolate yourself. Please continue to monitor the CDC website as the recommendations for length of quarantine change as additional information is released on this virus. Symptoms of Coronavirus What you need to know Anyone can have mild to severe symptoms. Older adults and people who have severe underlying medical conditions like heart or lung disease or diabetes seem to be at higher risk for developing more serious complications from COVID-19 illness. Watch for symptoms People with COVID-19 have had a wide range of symptoms reported ranging from mild symptoms to severe illness. Symptoms may appear 2-14 days after exposure to the virus. People with these symptoms may have COVID-19: Fever or chills Cough Shortness of breath or difficulty breathing Fatigue Muscle or body aches Headache New loss of taste or smell Sore throat Congestion or runny nose Nausea or vomiting Diarrhea This list does not include all possible symptoms. The CDC will continue to update this list as we learn more about COVID-19. When to Seek Emergency Medical Attention Look for emergency warning signs* for COVID-19. If someone is showing any of these signs, seek emergency medical care immediately Trouble breathing Persistent pain or pressure in the chest New confusion Inability to wake or stay awake Bluish lips or face *This list does not include all possible symptoms. Please call your medical provider for any other symptoms that are severe or concerning to you. Call 911 or call ahead to your local emergency facility: Notify the rail operator that you are seeking care for someone who has or may have COVID-19. [email or web address] Not available 02/26/2020 17:33:19 Reason for Referral None Reported. Results Created Date Observation Date Name Description Value Unit Range Abnormal Flag Note LastModifiedBy Organization Detail LastModifiedTime 02/26/20 20 02/28/2020 SARS CoV 2 RNA (COVI D-19) , QL, post form remover-P CR, respi rator y speci men covid-19, SALMA Not Detec augustus Refer ence range : Not Detec augustus (NOTE ) This nucle ic acid ampli ficat ion test was devel oped and its perfo rmanc e zee cteri stics deter mined by [employer] [facility]. Nucle ic acid ampli ficat ion tests inclu de PCR and TMA. This test has not been FDA clear ed or appro maira. This test has been autho rized by FDA under an Emerg ency Use Autho rizat ion (EUA) . This test is only autho rized for the durat ion of time the decla ratio n that circu mstan aj exist justi fying the autho rizat ion of the emerg ency use of in vitro diagn ostic tests for detec tion of SARS- CoV-2 virus and/o r diagn osis of COVID -19 infec tion under secti on 564(b )(1) of the Act, 21 U.S.C . 360bb b-3(b ) (1), unles s the autho rizat ion is termi nated or revok ed soone r. When diagn ostic testi ng is negat parish, the possi bilit y of a false negat parish resul t shoul d be consi dered in the aretha xt of a patie nt's recen t expos ures and the prese nce of clini prabha signs and sympt oms consi stent with COVID -19. An indiv idual witho ut sympt oms of COVID - 19 and who is not parvin ing SARS- CoV-2 virus would expec t to have a negat parish (not detec augustus) resul t in this assay . TEST PERFO RMED BY [facility], AFUA LEE Y Not Available [facility] (Centralized Electronic Ordering - All Locations) Patient Can Go To The Location Of Their Choice, [id number] 02/28/2020 07:25:50 Result Notes None recorded. Medical Equipment None Reported. Allergies Allergen ID Allergen Name Allergen Category Reaction Reaction Severity Criticality Documentation Date Start Date Code Code System Note Provider Name and Address Organization Details Recorded Time 695289 Product containin g penicilli n (product) medicatio n rash Not available Not available 02/26/2020 49232 8002 SNOMED DENISE GOMEZ NP [address] [facility] [place], [address] [facility] [place] [facility] 0 17:29:33 Medications Name Sig Start Date Stop Date Status Note LastModified by Organization Details LastModified Time tamsulosin 0.4 mg capsule active Not Available Not Available Not Available ProAir HFA 90 mcg/actuati on aerosol inhaler active Not Available Not Available Not Available Symbicort 80 mcg-4.5 mcg/actuati on HFA aerosol inhaler active Not Available Not Available Not Available Fluarix Quad (PF) 60 mcg (15 mcg x 4)/0.5 mL IM syringe inject 0.5 milliliters intramuscula rly active Not Available Not Available No t Available Afluria Qd (36 mos up)(PF)60 mcg (15 mcg x4)/0.5 mL IM syringe ADM 0.5ML IM UTD active Not Available Not Available No t Available Vitals Date Recorded Respiratory rate Heart rate Oxygen saturation Oxygen saturation in Arterial blood by Pulse oximetry Body temperature Systolic And Diastolic Provider Name and Address Organization Details Last Updated DateTime 0 16 /min 70 /min 99 % 99 % 98.6 [degF] 120/60 mm[Hg] Not Available [facility] 0 17:38:24 Social History None recorded. Functional Status None recorded. Mental Status None recorded. Family History Nothing Reported. Medical History Condition Response Asthma Y Past Encounters Encounter ID Performer Location Encounter Start Date Encounter Closed Date Diagnosis/Indication Diagnosis SNOMED-CT Code Diagnosis ICD10 Code Diagnosis IMO Codes Diagnosis Note [id number] DENISE GOMEZ NP [facility] [address] , [place] [address] 02/26/2020 17:27:47 02/29/2020 09:00:37 Exposure to communicable disease 508844012 Z20.828 Health Concerns Section Related Observation LastModified by Organization Detai ls LastModified Time None Recorded Concern Status LastModified by Organization Details LastModified Time None Recorded Advance Directives Directive None Recorded Payers Insurance Date Sequence Insurance Name Policy Number Policy Eng Covered Member ID Eng Member ID Guarantor Name 02/26/2020 1 *SELF PAY* Star Guerrero [id number] Star Guerrero 04/20/2020 1 [facility] [id number] Star Guerrero [id number] Star Guerrero Notes Date Note Type Note Provider Name and Address Organization Details Recorded Time 02/26/2020 text/html This is a 54 yo male that is a new patient to . He contacted for COVID testing as he recently traveled out of [facility] and is required to be tested upon reentry to the [facility]. He denies any recent sick contacts and is denying any symptoms concerning for COVID. DENISE GOMEZ NP [address], [place], [address], [place] - [facility] 02/26/2020 17:51:16
== END 2025-04-18 11:54 | disposition home or self-care (01) ==
LOC: HO.HPS 11:05
PROVIDERS: PCP Internal Medicine; Visit Provider Hospitalist
DX: J45.40 Moderate persistent asthma, uncomplicated (principal); R06.09 Other forms of dyspnea; J30.2 Other seasonal allergic rhinitis; J40 Bronchitis, not specified as acute or chronic; J44.9 Chronic obstructive pulmonary disease, unspecified
CPT/HCPCS: 99214